=== PATIENT | male | born 1985 | race Caucasian/White ===

== ENCOUNTER 2016-11-03 09:07 | Outpatient (CLI) | payer OTHER ==
[2016-11-03] MEDS ORDERED: BARIUM SULFATE 135 ML SUSP.RECON (E-Z-HD) PO ONE (09:48)
== END 2016-11-03 19:58 | disposition home or self-care (01) ==
LOC: SRD 09:07
DX: K21.9 Gastro-esophageal reflux disease without esophagitis (principal); R63.0 Anorexia; R62.51 Failure to thrive (child)
CPT/HCPCS: 74220-TC; 74246